=== PATIENT | female | born 1955 | race Caucasian/White ===

== ENCOUNTER 2018-01-19 09:43 | Emergency (ER) | payer OTHER ==
[2018-01-19 09:49] VITALS: BP 165/93; PULSE 71; TEMP 98.1; BMI 28.0
[2018-01-19] MEDS ORDERED: DEXAMETHASONE SOD PHOSPHATE 10 MG/1 ML VIAL IM ONE (10:28)
[2018-01-19] MEDS ORDERED: KETOROLAC TROMETHAMINE 60 MG/2 ML VIAL IM ONE (10:28)
[2018-01-19] MEDS ORDERED: KETOROLAC TROMETHAMINE 60 MG/2 ML VIAL ONE (10:31)
[2018-01-19] MEDS ORDERED: DEXAMETHASONE SOD PHOSPHATE 10 MG/1 ML VIAL ONE (10:31)
--- NOTE | 2018-01-19 10:33 | PDOC ---
History of Present Illness - General Chief Complaint: Pain Stated Complaint: PAIN Time Seen by Provider: 01/19/18 09:54 History Source: Patient Exam Limitations: No Limitations - History of Present Illness Initial Comments: 01/19/18 10:28 Patient here with complaints of persistent right shoulder pain. States one week ago woke up with pain in her right shoulder but progressively worsened. Was concerned may be a bad betting as daughter suffers from same but patient now complaints of radiating pain down the ulnar aspect of her right arm. Was seen by Dr. martinez a few days ago diagnosed possible cervical radiculopathy and is pending an MRI approval for her neck. Was given cyclobenzaprine and instructed use ibuprofen and states his medications have not helped her pain much. Denies fever, earache sore throat shortness of breath or URI symptoms. Denies any abdominal pain or history of gallbladder disease. States was diagnosed with rheumatoid arthritis one year ago but has not chosen to new evaluation or treatment Occurred: reports: last week Severity: reports: moderate, severe Pain Location: reports: upper extremity (right shoulder ) Method of Injury: Yes: unknown Loss of Consciousness: no loss of consciousness Associated Symptoms (Fall): denies symptoms Past History - Travel Traveled outside of the country in the last 30 days: No Close contact w/someone who was outside of country & ill: No - Past Medical History Allergies/Adverse Reactions: Allergies Allergy/AdvReac Type Severity Reaction Status Date / Time No Known Allergies Allergy Verified 01/19/18 09:49 Home Medications: Ambulatory Orders Carvedilol 6.25 mg PO DAILY 10/11/15 Losartan Potassium 25 mg PO DAILY 10/11/15 Simvastatin 40 mg PO DAILY 10/11/15 Naproxen [Naprosyn -] 500 mg PO BID #30 tablet 01/19/18 COPD: No Diabetes: Yes (pre) HTN: Yes Other medical history: rheumatoid arthritis with no meds - Immunization History Immunization Up to Date: Yes - Suicide/Smoking/Psychosocial Hx Smoking History: Current every day smoker Have you smoked in the past 12 months: Yes Number of Cigarettes Smoked Daily: 6 Information on smoking cessation initiated: No 'Breaking Loose' booklet given: 03/13/15 Hx Alcohol Use: No Drug/Substance Use Hx: No Substance Use Type: None Review of Systems - Review of Systems Able to Perform ROS?: Yes Is the patient limited Dutch proficient: Yes Constitutional: Yes: Symptoms Reported, See HPI, Malaise. No: Fever HEENTM: Yes: See HPI. No: Symptoms Reported Respiratory: Yes: See HPI. No: Symptoms reported Musculoskeletal: Yes: Symptoms Reported, See HPI, Back Pain, Joint Pain (right shoulder) Integumentary: Yes: See HPI. No: Symptoms Reported, Bruising Neurological: Yes: Symptoms reported All Other Systems: Reviewed and Negative *Physical Exam - Vital Signs Last Vital Signs Temp Pulse Resp BP Pulse Ox 98.1 F 71 18 165/93 98 01/19/18 09:45 01/19/18 09:45 01/19/18 09:45 01/19/18 09:45 01/19/18 09:45 - Physical Exam General Appearance: Yes: Nourished, Appropriately Dressed, Apparent Distress, Mild Distress, Moderate Distress HEENT: positive: GLENN, Normal ENT Inspection, TMs Normal, Pharynx Normal Neck: positive: Supple. negative: Tender, Tender midline (hhowever patient has tight tense musculature paravertebral spinous muscles on the right side) Respiratory/Chest: positive: Lungs Clear Extremity: positive: Normal Capillary Refill, Normal Inspection, Normal Range of Motion (but painful to abduct and flex past 90.), Tender Integumentary: positive: Dry, Warm, Pale Neurologic: positive: protection consultant II-XII NML intact, Fully Oriented, Alert, Normal Mood/ Affect, Normal Response, Motor Strength 5/5 Progress Note - Progress Note Progress Note: Right shoulder pain related to probable cervical radiculopathy and possible rheumatoid arthritis flare. We will encourage continued use of cyclobenzaprine, NSAIDs, and given 1 dose of Decadron here *DC/Admit/Observation/Transfer Diagnosis at time of Disposition: Right shoulder pain Qualifiers: Chronicity: acute Qualified Code(s): M25.511 - Pain in right shoulder - Discharge Dispostion Disposition: HOME Condition at time of disposition: Stable Decision to Admit order: No - Referrals Referrals: Sabas Lerner [Primary Care Provider] - Kevin Valadez MD [Staff Physician] - - Patient Instructions Printed Discharge Instructions: DI for Cervical Radiculopathy Additional Instructions: Rest, ice to area on and off for 15 minutes 4-6 times a day Avoid heavy lifting or exercise until pain and swelling is resolved or until further directed Keep area highly elevated to reduce swelling Use splints/Jason wrap as directed Followup with orthopedist in one to 2 days if not improving, if significantly improved may wait one week for followup with orthopedist May use Naprosyn 500 mg tablet every 12 hours for 3 days then hours as needed for pain You have been given 1 dose of Decadron 10 mg for steroidal anti-inflammatory purposes - Post Discharge Activity Forms/Work/School Notes: Back to Work
== END 2018-01-19 10:38 | disposition home or self-care (01) ==
LOC: JERFT 09:43
PROC: 3E0233Z Introduction of Anti-inflammatory into Muscle, Percutaneous Approach (ICD-10-PCS; principal; 2018-01-19)
PROC: 3E0233Z Introduction of Anti-inflammatory into Muscle, Percutaneous Approach (ICD-10-PCS; 2018-01-19)
DX: M25.511 Pain in right shoulder (principal); M06.9 Rheumatoid arthritis, unspecified; I10 Essential (primary) hypertension; R73.03 Prediabetes
CPT/HCPCS: 99281-25; J1100

== ENCOUNTER 2018-08-31 07:05 | Emergency (ER) | payer OTHER | END 2018-08-31 09:04 | disposition home or self-care (01) | LOC: JER 07:05 ==

== ENCOUNTER 2019-03-14 12:47 | Inpatient (IN) | payer OTHER ==
--- NOTE | 2019-03-14 13:55 | EKG ---
Test Reason : Blood Pressure : / mmHG Vent. Rate : 056 BPM Atrial Rate : 056 BPM P-R Int : 206 ms QRS Dur : 084 ms QT Int : 426 ms P-R-T Axes : 046 036 023 degrees QTc Int : 411 ms SINUS BRADYCARDIA OTHERWISE NORMAL ECG NO PREVIOUS ECGS AVAILABLE Confirmed by TEE GILL MD ([id number]) on 03/14/2019 1:54:44 PM Referred By: Confirmed By:TEE GILL MD
--- NOTE | 2019-03-14 14:12 | PDOC ---
History of Present Illness - General Chief Complaint: Chest Pain Stated Complaint: SOB Time Seen by Provider: 03/14/19 13:55 - History of Present Illness Initial Comments: 03/14/19 14:12 63F with pmh of hypertension and emphysema presents to the ED with chest pressure since 7am today while she was walking around at her workplace. She describes it like someone pushing on her chest worsening when she carries boxes at work. Somewhat short of breath but no diferent than her usul sob from her emphysema. No recent change in medication, trauma, recent surgeries. Is a smoker and has family history of heart attack around 50yo (both parents). No recent travel. Past History - Past Medical History Allergies/Adverse Reactions: Allergies Allergy/AdvReac Type Severity Reaction Status Date / Time No Known Allergies Allergy Verified 03/14/19 13:03 Home Medications: Ambulatory Orders Cyclobenzaprine HCl [Flexeril -] 10 mg PO HS #10 tablet 08/31/18 Cyclobenzaprine HCl [Flexeril -] 10 mg PO HS #10 tablet 08/31/18 Ibuprofen 600 mg PO Q6H #30 tablet 08/31/18 Ibuprofen 800 mg PO TID #30 tablet 08/31/18 Labetalol HCl 0 mg PO DAILY 08/31/18 COPD: No Diabetes: Yes (pre) HTN: Yes - Immunization History Immunization Up to Date: Yes - Psycho Social/Smoking Cessation Hx Smoking History: Current some day smoker Have you smoked in the past 12 months: Yes Number of Cigarettes Smoked Daily: 5 Information on smoking cessation initiated: Yes 'Breaking Loose' booklet given: 03/13/15 Hx Alcohol Use: No Drug/Substance Use Hx: No Substance Use Type: None Review of Systems - Review of Systems Able to Perform ROS?: Yes Is the patient limited Guatemalan proficient: No Constitutional: No: Symptoms Reported HEENTM: No: Symptoms Reported Respiratory: No: Symptoms reported Cardiac (ROS): Yes: See HPI ABD/GI: No: Symptoms Reported : No: Symptoms Reported Musculoskeletal: No: Symptoms Reported Integumentary: No: Symptoms Reported Neurological: No: Symptoms reported All Other Systems: Reviewed and Negative *Physical Exam - Vital Signs Last Vital Signs Temp Pulse Resp BP Pulse Ox 97.5 F L 55 L 18 147/66 99 03/14/19 13:04 03/14/19 13:04 03/14/19 13:04 03/14/19 13:04 03/14/19 13:04 - Physical Exam General Appearance: Yes: Nourished, Appropriately Dressed. No: Apparent Distress HEENT: positive: EOMI, GLENN, Normal ENT Inspection Respiratory/Chest: positive: Chest Tender (upper right chest), Lungs Clear, Normal Breath Sounds. negative: Respiratory Distress Cardiovascular: positive: Regular Rhythm, S1, S2, Bradycardia Gastrointestinal/Abdominal: positive: Normal Bowel Sounds, Flat, Soft. negative : Tender Musculoskeletal: positive: Normal Inspection. negative: CVA Tenderness Extremity: positive: Normal Capillary Refill, Normal Range of Motion Integumentary: positive: Normal Color, Dry, Warm Neurologic: positive: Fully Oriented, Alert, Normal Mood/Affect, Normal Response , Motor Strength 5/5 Heart Score/ECG Review - History History: Moderately suspicious - Electrocardiogram EKG: Normal - Age Age: >/= 65 - Risk Factors Risk Factors Heart Score: Yes Hx Hypertension, Yes Smoking History, Yes Positive family hx of cardiac disease Based on the list above the patient has:: >/=3 risk factors or Hx atherosclerotic disease - Troponin Troponin: </= normal limit - Score Heart Score - Total: 5 ED Treatment Course - LABORATORY CBC & Chemistry Diagram: 03/14/19 14:30 03/14/19 14:30 - ADDITIONAL ORDERS Additional order review: Laboratory Results 03/14/19 03/14/19 14:30 14:30 Sodium 141 Potassium 4.2 Chloride 108 H Carbon Dioxide 26 Anion Gap 7 L BUN 18.4 H Creatinine 0.9 Est GFR (CKD-EPI)AfAm 77.77 Est GFR (CKD-EPI)NonAf 67.10 Random Glucose 68 L Calcium 9.4 Total Bilirubin 0.2 AST 19 ALT 21 Alkaline Phosphatase 70 Troponin I < 0.02 Total Protein 7.4 Albumin 3.9 Urine Color Yellow Urine Appearance Cloudy Urine pH 6.0 Ur Specific [place] 1.006 L Urine Protein Negative Urine Glucose (UA) Negative Urine Ketones Negative Urine Blood Negative Urine Nitrite Negative Urine Bilirubin Negative Urine Urobilinogen 0.2 Ur Leukocyte Esterase Negative 03/14/19 14:30 RBC 4.64 MCV 85.3 MCHC 32.5 RDW 13.9 MPV 8.3 Neutrophils % 61.9 Lymphocytes % 28.1 D Monocytes % 6.7 Eosinophils % 2.8 Basophils % 0.5 - RADIOLOGY Radiology Studies Ordered: Category Date Time Status CHEST PA & LAT [RAD] Stat Radiology 03/14/19 14:02 Taken Medical Decision Making - Medical Decision Making 03/14/19 14:19 63F with chest pressure since 7am today. Elevated heart score at 6. Will obtain ekg, trops and cxr Admit to telemetry obs unless patient leaves AMA., Likely msk due to reproducible pain on palpation. Low well's score, of 0, low suspicion for PE. 03/14/19 16:50 ekg: Sinus bradycardia HR: 56, otherwise normal ekg Negative stops,. Patient admitted to Dr. Cordova to tele obs Discharge - Discharge Information Problems reviewed: Yes Clinical Impression/Diagnosis: Chest pain Condition: Improved - Admission Yes - Follow up/Referral Referrals: Sabas Lerner [Primary Care Provider] - - Patient Discharge Instructions - Post Discharge Activity
[2019-03-14 14:55] LABS: BASO % 0.5 % (0-2.0); EOS % 2.8 % (0-4.5); HEMATOCRIT 39.6 % (32.4-45.2); HEMOGLOBIN 12.9 GM/dL (10.7-15.3); LYMPH % 28.1 % (8-40); MCH 27.7 pg (25.7-33.7); MCHC 32.5 g/dl (32.0-36.0); MEAN CELL VOLUME 85.3 fl (80-96); MEAN PLT VOLUME 8.3 fl (7.5-11.1); MONO % 6.7 % (3.8-10.2); NEUT % 61.9 % (42.8-82.8); PLATELET COUNT 362 K/MM3 (134-434); RBC 4.64 M/mm3 (3.60-5.2); RDW 13.9 % (11.6-15.6); WHITE BLOOD COUNT 8.6 K/mm3 (4.0-10.0)
[2019-03-14 14:57] LABS: URINE APPEARANCE CLOUDY; URINE BILIRUBIN NEGATIVE (NEGATIVE); URINE COLOR YELLOW; URINE GLUCOSE (UA) NEGATIVE (NEGATIVE); URINE KETONE NEGATIVE (NEGATIVE); URINE LEUK ESTERASE NEGATIVE (NEGATIVE); URINE NITRITE NEGATIVE (NEGATIVE); URINE PROTEIN NEGATIVE (NEGATIVE); URINE UROBILINOGEN 0.2 mg/dL (0.2-1.0)
[2019-03-14 15:44] LABS: ALBUMIN 3.9 g/dl (3.4-5.0); ALK PHOS 70 U/L (45-117); ANION GAP 7 MMOL/L (8-16); BILIRUBIN,TOTAL 0.2 mg/dL (0.2-1); BLOOD UREA NITROGEN 18.4 mg/dL (7-18); CALCIUM 9.4 mg/dL (8.5-10.1); CHLORIDE 108 mmol/L (98-107); CO2 26 mmol/L (21-32); CREATININE 0.9 mg/dL (0.55-1.3); GLUCOSE,RANDOM 68 mg/dL (74-106); POTASSIUM 4.2 mmol/L (3.5-5.1); SGOT/AST 19 U/L (15-37); SGPT/ALT 21 U/L (13-61); SODIUM 141 mmol/L (136-145); TOT PROT 7.4 g/dl (6.4-8.2)
--- NOTE | 2019-03-14 17:01 | PDOC ---
Documentation entered by Gina Rivera SCRIBE, acting as scribe for Farheen Ortiz MD. Farheen Ortiz MD: This documentation has been prepared by the Nicole lane Adrianna, SCRIBE, under my direction and personally reviewed by me in its entirety. I confirm that the documentation accurately reflects all work, treatment, procedures, and medical decision making performed by me. Attending Attestation - Resident Resident Name: ChenchoAdarsh - ED Attending Attestation I have performed the following: I have examined & evaluated the patient, The case was reviewed & discussed with the resident, I agree w/resident's findings & plan, Exceptions are as noted - HPI HPI: The patient is a 63 year old female, with a significant PMH of HTN, emphysema, and pre-DM, who presents to the ED for evaluation of chest pressure since this morning. Patient notes she was at work ([employer] employee), changing heavy display cases when she developed sudden onset right-sided chest pressure ( unsure if it developed while she was lifting or after). Patient has done this in the past without any problems. Patient describes the pressure as "a man sitting on my chest. She reports associated nausea, lethargy this morning but has had this intermittently for weeks. Patient reports some shortness of breath , but does note this is present at baseline (2/2 emphysema). Her symptoms are exacerbated with picking up heavy items (i.e when she was lifting boxes at work) . She denies any history of similar symptoms. Patient went to Urgent Care earlier for this complaint, and was sent to the ED for further evaluation secondary to her cardiac risk factors. Denies dizziness, focal weakness/numbness, fever, chills, abdominal pain, nausea , vomit, diarrhea, constipation, dysuria, hematuria, LE edema, calf pain. Allergies: NKA, NKDA Surgical History: None reported Family History: Father passed at an earlier age 2/2 [place]. Mother had angina. Social History: Current everyday smoker (1/4 ppd). Denies EtOH or illicit drug use PCP: Dr. Lerner [place] Sewer: Dr. Vivar - Physicial Exam PE: GENERAL: Awake, alert, and fully oriented, in no acute distress HEAD: No signs of trauma EYES: PERRLA, EOMI, sclera anicteric, conjunctiva clear ENT: Auricles normal inspection, hearing grossly normal, nares patent, oropharynx clear without exudates. Moist mucosa NECK: Normal ROM, supple, no lymphadenopathy, JVD, or masses LUNGS: Breath sounds equal, clear to auscultation bilaterally. No wheezes, and no crackles HEART: +Bradycardic. +Right chest wall pain that is reproducible on palpation. Regular rhythm, normal S1 and S2, no murmurs, rubs or gallops ABDOMEN: Soft, nontender, normoactive bowel sounds. No guarding, no rebound. No masses EXTREMITIES: Normal range of motion, no edema. No clubbing or cyanosis. No cords , erythema, or tenderness BACK: No midline spinal tenderness in cervical/thoracic/lumbar region NEUROLOGICAL: Normal speech, cranial nerves intact, negative pronator drift, 5/ 5 strength in all 4 extremities, normal sensation to light touch in all 4 extremities, normal cerebellar exam, normal gait, normal reflexes and tone SKIN: Warm, Dry, normal turgor, no rashes or lesions noted. - Medical Decision Making 03/14/19 15:35 63-year-old female with a history of diabetes, active smoker, hypertension, significant family history of cardiac disease presents emergency department with chest pressure since this morning. Differential includes acute coronary syndrome versus musculoskeletal pain versus pneumonia. Unlikely pulmonary embolism as patient denies any new shortness of breath (states she feels short of breath at baseline due to emphysema). Patient also has no risk factors for pulmonary embolism, no recent travel or immobility and has no calf pain or tenderness. She also denies chest pain and is reporting only pressure. Her heart score 6. Plan at this point to obtain labs, x-ray and admit the patient given her elevated heart score for further cardiac work-up. Heart Score/ECG Review #1 03/14/19 17:33 Twelve-lead EKG was performed and reviewed by me. Sinus bradycardia, rate 56. Normal axis and intervals. No ST elevations.
[2019-03-14 18:57] VITALS: BMI 26.9
--- NOTE | 2019-03-14 19:56 | HP ---
Admitting History and Physical - Smoking History Smoking history: Current some day smoker Have you smoked in the past 12 months: Yes Aproximately how many cigarettes per day: 5 - Alcohol/Substance Use Hx Alcohol Use: No Home Medications - Allergies Allergies/Adverse Reactions: Allergies Allergy/AdvReac Type Severity Reaction Status Date / Time No Known Allergies Allergy Verified 03/14/19 13:03 - Home Medications Home Medications: Ambulatory Orders Labetalol HCl 200 mg PO BID 08/31/18 Aspirin [Aspirin EC] 81 mg PO DAILY 03/14/19 Glyburide 2.5 mg PO DAILY 03/14/19 Spironolactone 25 mg PO DAILY 03/14/19 Physical Examination Vital Signs: Vital Signs Temperature 97.9 F 03/14/19 18:52 Pulse Rate 65 03/14/19 18:52 Respiratory Rate 18 03/14/19 18:59 Blood Pressure 149/87 03/14/19 18:52 O2 Sat by Pulse Oximetry (%) 99 03/14/19 18:59 Labs: CBC, BMP 03/14/19 14:30 03/14/19 14:30
[2019-03-14] MEDS: ASPIRIN COATED 81 MG TABLET.EC PO SCH (20:56)
[2019-03-14] MEDS: INSULIN SLIDING SCALE (NOVOLOG) 1 VIAL SQ SCH (21:53)
[2019-03-14] MEDS: LABETALOL HCL 200 MG TABLET (FP) PO SCH (21:53)
[2019-03-14] MEDS: HEPARIN NA (PORCINE) 5,000 UNITS/ML 1ML VIAL SQ SCH (21:53)
[2019-03-15] MEDS: INSULIN SLIDING SCALE (NOVOLOG) 1 VIAL SQ SCH ×2 (06:36→12:07)
[2019-03-15 07:00] LABS: BASO % 0.5 % (0-2.0); EOS % 3.8 % (0-4.5); HEMATOCRIT 38.1 % (32.4-45.2); HEMOGLOBIN 12.8 GM/dL (10.7-15.3); MCH 28.1 pg (25.7-33.7); MCHC 33.4 g/dl (32.0-36.0); MEAN CELL VOLUME 84.1 fl (80-96); MEAN PLT VOLUME 8.3 fl (7.5-11.1); MONO % 7.7 % (3.8-10.2); PLATELET COUNT 342 K/MM3 (134-434); RBC 4.54 M/mm3 (3.60-5.2); RDW 13.9 % (11.6-15.6); WHITE BLOOD COUNT 6.8 K/mm3 (4.0-10.0)
[2019-03-15] MEDS ORDERED: glyBURIDE 2.5 MG TABLET (FP) PO SCH (07:00)
[2019-03-15 07:17] LABS: ALBUMIN 3.4 g/dl (3.4-5.0); BILIRUBIN,TOTAL 0.4 mg/dL (0.2-1); BLOOD UREA NITROGEN 17.8 mg/dL (7-18); CALCIUM 8.8 mg/dL (8.5-10.1); CREATININE 0.9 mg/dL (0.55-1.3); POTASSIUM 4.3 mmol/L (3.5-5.1); TOT PROT 6.4 g/dl (6.4-8.2)
[2019-03-15 09:22] VITALS: BP 118/80; PULSE 74; TEMP 98.1
[2019-03-15] MEDS: ASPIRIN COATED 81 MG TABLET.EC PO SCH (09:23)
[2019-03-15] MEDS: HEPARIN NA (PORCINE) 5,000 UNITS/ML 1ML VIAL SQ SCH (09:24)
[2019-03-15] MEDS: LABETALOL HCL 200 MG TABLET (FP) PO SCH (09:25)
[2019-03-15] MEDS ORDERED: SPIRONOLACTONE 25 MG TABLET (FP) PO SCH (10:00)
--- NOTE | 2019-03-15 10:23 | PN ---
Progress Note (short form) - Note Progress Note: patient seen and examiunde in room reports CP occured while doing heavy lifting at work denies diaphoresis / radiation of pain / N/ V/ SOB has been chesp pain free since admission TNI flat / EKG no findings Vital Signs Period Temp Pulse Resp BP Sys/Ugarte Pulse Ox Last 24 Hr 97.5 F-98.5 F 55-80 18-18 118-156/66-89 99-100 neck supple heart s1/S2 lungs clear bilat abd soft non tender ext no edema CBC, BMP 03/15/19 06:05 03/15/19 06:05 Troponin, BNP 03/14/19 03/14/19 03/14/19 14:30 17:00 20:40 Troponin I < 0.02 < 0.02 < 0.02 03/15/19 06:05 Troponin I < 0.02 Active Medications Aspirin (Ecotrin -) 81 mg PO DAILY [facility] Last Admin: 03/15/19 09:23 Dose: 81 mg Glyburide (Diabeta -) 2.5 mg PO DAILY@0700 [facility] Last Admin: 03/15/19 06:36 Dose: 2.5 mg Heparin Sodium (Porcine) (Heparin -) 5,000 unit SQ BID [facility] Last Admin: 03/15/19 09:24 Dose: Not Given Insulin Aspart (Novolog Vial Sliding Scale -) 1 vial SQ ACHS [facility]; Protocol Last Admin: 03/15/19 06:36 Dose: Not Given Labetalol HCl (Normodyne -) 200 mg PO BID [facility] Last Admin: 03/15/19 09:25 Dose: 200 mg Spironolactone (Aldactone -) 25 mg PO DAILY [facility] Last Admin: 03/15/19 09:23 Dose: 25 mg # atypical chest pain sx resolved / TNI flat / EKG NSR no ischemic changes - no evidence of ACS pain not reproducible on exam today risk factors DM / HTN /smoker will need stress testing - discussed with patient -she agrees with out patient follow up defer to Cardio for out patient follow up # HTN on meds well controlled # DM compliant / well controlled on home meds continue meds If Cardio agrees d/c today with out patient follow up
--- NOTE | 2019-03-15 13:03 | CON.CARD ---
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 She describes it like someone pushing on her chest worsening when she carries boxes at work. Somewhat short of breath but no different than her usul sob from her emphysema. She is a smoker and has family history of heart attack around 50yo (both parents). She is currently asymptomatic denies chest pain, dyspnea worse than baseline, near or true syncope, palpitations, orthopnea, PND, claudication or LE edema. - History Source History Provided By: Patient Limitations to Obtaining History: No Limitations - Alcohol/Substance Use Hx Alcohol Use: No - Smoking History Smoking history: Current some day smoker Have you smoked in the past 12 months: Yes Aproximately how many cigarettes per day: 5 Home Medications - Allergies Allergies/Adverse Reactions: Allergies Allergy/AdvReac Type Severity Reaction Status Date / Time No Known Allergies Allergy Verified 03/14/19 13:03 - Home Medications Home Medications: Ambulatory Orders Labetalol HCl 200 mg PO BID 08/31/18 Aspirin [Aspirin EC] 81 mg PO DAILY 03/14/19 Glyburide 2.5 mg PO DAILY 03/14/19 Spironolactone 25 mg PO DAILY 03/14/19 Review of Systems - Review of Systems Cardiovascular: reports: Chest Pain, Shortness of Breath Vital Signs: Vital Signs Temperature 98.1 F 03/15/19 09:21 Pulse Rate 74 03/15/19 09:21 Respiratory Rate 18 03/15/19 09:21 Blood Pressure 118/80 03/15/19 09:21 O2 Sat by Pulse Oximetry (%) 96 03/15/19 09:00 Constitutional: Yes: No Distress, Calm Neck: Yes: Supple Respiratory: Yes: Regular, CTA Bilaterally Gastrointestinal: Yes: Normal Bowel Sounds, Soft Cardiovascular: Yes: Regular Rate and Rhythm JVD: No Carotid Bruit: No Heart Sounds: Yes: S1, S2 Edema: No - Other Data Labs, Other Data: CBC, BMP 03/15/19 06:05 03/15/19 06:05 Troponin, BNP 12/03/14/19 03/14/19 14:30 17:00 20:40 Troponin I < 0.02 < 0.02 < 0.02 03/15/19 06:05 Troponin I < 0.02 Troponin, BNP 03/14/19 03/14/19 03/14/19 14:30 17:00 20:40 Troponin I < 0.02 < 0.02 < 0.02 03/15/19 06:05 Troponin I < 0.02 SB @ 56 1st deg AVB Imaging - Results Chest X-ray: Report Reviewed (NAD) EKG: Report Reviewed (SB @ 56 1st deg AVB) Problem List - Problems (1) Atypical chest pain Code(s): R07.89 - OTHER CHEST PAIN (2) Hypertension Code(s): I10 - ESSENTIAL (PRIMARY) HYPERTENSION Qualifiers: Hypertension type: essential hypertension Qualified Code(s): I10 - Essential (primary) hypertension (3) Type 2 diabetes mellitus Code(s): E11.9 - TYPE 2 DIABETES MELLITUS WITHOUT COMPLICATIONS Qualifiers: Diabetes mellitus superintendent container terminal insulin use: without residential use Assessment/Plan 1. Atypical chest pain after lifting heavy items since resolved, suspect musculoskeletal etiology 2. Hypertension 3. Hyperlipidemia 4. Type 2 DM 5. Family history of CAD 6. Tobacco abuse P:1. Ruled out for [place] 2. July d/c home with plan for outpatient stress echo r/o structural heart disease, plan of care d/w patient and primary 3. Continue labetolol 200 bid, Aldactone 25 qd, tobacco cessation 4. Thank you for consultative opportunity
--- NOTE | 2019-03-15 21:21 | DS ---
Physical Examination Vital Signs: Vital Signs Temperature 98.1 F 03/15/19 09:21 Pulse Rate 74 03/15/19 09:21 Respiratory Rate 18 03/15/19 09:21 Blood Pressure 118/80 03/15/19 09:21 O2 Sat by Pulse Oximetry (%) 96 03/15/19 09:00 Findings/Remarks: 63F with pmh of hypertension and emphysema presents to the ED with chest pressure since 7am today while she was walking around at her workplace. She describes it like someone pushing on her chest worsening when she carries boxes at work. Somewhat short of breath but no diferent than her usul sob from her emphysema. No recent change in medication, trauma, recent surgeries. Is a smoker and has family history of heart attack around 50yo (both parents). No recent travel. # atypical chest pain sx resolved / TNI flat / EKG NSR no ischemic changes - no evidence of ACS pain not reproducible on exam today risk factors DM / HTN /smoker will need stress testing - discussed with patient -she agrees with out patient follow up . d/c home with plan for outpatient stress echo r/o structural heart disease , plan of care d/w patient arranged by Maribeth # HTN on meds well controlled # DM compliant / well controlled on home meds continue meds Constitutional: Yes: Well Nourished, No Distress Eyes: Yes: Conjunctiva Clear, EOM Intact HENT: Yes: Atraumatic, Normocephalic Neck: Yes: Supple, Trachea Midline Cardiovascular: Yes: Regular Rate and Rhythm, S1, S2 Respiratory: Yes: CTA Bilaterally Gastrointestinal: Yes: Normal Bowel Sounds, Soft ...Rectal Exam: Yes: Deferred Renal/: Yes: WNL Breast(s): Yes: WNL Musculoskeletal: Yes: WNL. No: Joint Stiffness, Joint Swelling, Muscle Pain Extremities: Yes: WNL Edema: No Peripheral Pulses WNL: Yes Integumentary: Yes: WNL Wound/Incision: Yes: Clean/Dry, Well Approximated Neurological: Yes: Alert, Oriented ...Motor Strength: WNL Psychiatric: Yes: Alert, Oriented Labs: CBC, BMP 03/15/19 06:05 03/15/19 06:05 Discharge Summary Problems reviewed: Yes Reason For Visit: CHEST PAIN Condition: Improved - Instructions Referrals: Sabas Lerner [Primary Care Provider] - Disposition: HOME - Home Medications Comprehensive Discharge Medication List: Ambulatory Orders Labetalol HCl 200 mg PO BID 08/31/18 Aspirin [Aspirin EC] 81 mg PO DAILY 03/14/19 Glyburide 2.5 mg PO DAILY 03/14/19 Spironolactone 25 mg PO DAILY 03/14/19
== END 2019-03-15 13:47 | disposition home or self-care (01) | DRG 313 ==
LOC: JER 12:47 → JERBED 15:55 → J4W 18:51 → OBSVTOIN 19:54
PROVIDERS: ADMIT Family Medicine; ATTEND Family Medicine
DX: R07.89 Other chest pain (principal); I10 Essential (primary) hypertension; J43.9 Emphysema, unspecified; F17.210 Nicotine dependence, cigarettes, uncomplicated; E11.9 Type 2 diabetes mellitus without complications; I25.10 Atherosclerotic heart disease of native coronary artery without angina pectoris; E78.5 Hyperlipidemia, unspecified; I44.0 Atrioventricular block, first degree
CPT/HCPCS: 36415; 71046-TC-FY; 80053; 81003; 82550; 82962; 84484; 85025; 87086; 93005; 93010; 99285-25; G0378

== ENCOUNTER 2021-03-12 08:49 | Emergency (ER) | payer OTHER ==
[2021-03-12 09:26] VITALS: BP 131/86; PULSE 62; TEMP 98; BMI 28.5
[2021-03-12] MEDS ORDERED: ACETAMINOPHEN 500 MG TABLET (FP) PO ONE (09:50)
== END 2021-03-12 11:15 | disposition home or self-care (01) ==
LOC: JER 08:49 → JERFT 08:49
PROC: 2W3GX1Z Immobilization of Right Thumb using Splint (ICD-10-PCS; principal; 2021-03-12)
DX: M79.644 Pain in right finger(s) (principal)
CPT/HCPCS: 29130; 73130-TC-RT-FY; 99284-25

== ENCOUNTER 2023-08-02 14:15 | Emergency (ER) | payer OTHER ==
[2023-08-02 14:24] VITALS: BP 151/78; PULSE 71; RESP 18; TEMP 98.2; BMI 28.1
[2023-08-02 16:24] LABS: PH,URINE 5.5 (5.0-8.0); URINE APPEARANCE CLEAR; URINE BILIRUBIN NEGATIVE (NEGATIVE); URINE COLOR YELLOW; URINE GLUCOSE (UA) NEGATIVE (NEGATIVE); URINE KETONE NEGATIVE (NEGATIVE); URINE LEUK ESTERASE NEGATIVE (NEGATIVE); URINE NITRITE NEGATIVE (NEGATIVE); URINE PROTEIN NEGATIVE (NEGATIVE); URINE UROBILINOGEN 0.2 mg/dL (0.2-1.0)
[2023-08-02 17:19] LABS: BASO % 0.7 % (0-2.0); HEMATOCRIT 40.6 % (32.4-45.2); HEMOGLOBIN 13.3 GM/dL (10.7-15.3); LYMPH % 19.5 % (8-40); MCH 27.2 pg (25.7-33.7); MCHC 32.8 g/dl (32.0-36.0); MEAN CELL VOLUME 83.1 fl (80-96); MEAN PLT VOLUME 7.2 fl (7.5-11.1); MONO % 8.7 % (3.8-10.2); NEUT % 69.1 % (42.8-82.8); PLATELET COUNT 476 10^3/uL (134-434); RBC 4.89 M/mm3 (3.60-5.2); RDW 13.6 % (11.6-15.6); WHITE BLOOD COUNT 10.1 K/mm3 (4.0-10.0)
[2023-08-02 17:36] LABS: POTASSIUM 4.8 mmol/L (3.5-5.1)
[2023-08-02 17:40] LABS: ALBUMIN 3.7 g/dl (3.4-5.0); CALCIUM 9.4 mg/dL (8.5-10.1)
[2023-08-02 17:42] LABS: CREATININE 0.9 mg/dL (0.55-1.3)
[2023-08-02 17:44] LABS: BILIRUBIN,TOTAL 0.2 mg/dL (0.2-1); TOT PROT 7.5 g/dl (6.4-8.2)
== END 2023-08-02 21:00 | disposition home or self-care (01) ==
LOC: JER 14:15
DX: R05.9 Cough, unspecified (principal); R07.89 Other chest pain
CPT/HCPCS: 36415; 71046-TC-FY; 71275-TC; 80053; 81003; 84484; 85025; 85379; 93005; 93010; 99285-25; Q9967

== ENCOUNTER 2024-07-18 12:52 | Emergency (ER) | payer OTHER ==
[2024-07-18 13:01] VITALS: BP 114/63; PULSE 71; RESP 16; TEMP 98.1; BMI 28.1
[2024-07-18] MEDS ORDERED: ACETAMINOPHEN INJECTION 100 ML ONE (13:53)
[2024-07-18] MEDS ORDERED: FAMOTIDINE 20 MG/50 ML IVPB 20 MG/50 ML MG IVPB ONE (13:54)
[2024-07-18] MEDS ORDERED: MAG HYDROX/AL HYDROX/SIMETH 30 ML UNIT-DOSE CUP ONE (13:54)
[2024-07-18] MEDS ORDERED: ONDANSETRON 4 MG/2 ML VIAL ONE (13:54)
[2024-07-18] MEDS: MAG HYDROX/AL HYDROX/SIMETH 30 ML UNIT-DOSE CUP PO ONE (14:16)
[2024-07-18] MEDS: ACETAMINOPHEN 1000 MG/100 ML BAG IVPB ONE (14:16)
[2024-07-18] MEDS: FAMOTIDINE 20 MG/50 ML IVPB 20 MG/50 ML MG IVPB ONE (14:17)
[2024-07-18] MEDS: ONDANSETRON 4 MG/2 ML VIAL IVPB ONE (14:17)
[2024-07-18 14:25] LABS: ABSOLUTE IMMATURE GRANULOCYTES 0.03 x10^3/uL (0.0-0.031); BASOPHILS # 0.02 x10^3/uL (0.01-0.08); EOSINOPHIL % 1.5 % (0.7-5.8); EOSINOPHILS # 0.11 x10^3/uL (0.04-0.36); HEMATOCRIT 39.4 % (34.1-44.9); HEMOGLOBIN 12.4 g/dL (11.2-15.7); MCHC 31.5 g/dl (32.2-35.5); MEAN CELL VOLUME 86.8 fl (79.4-94.8); MEAN PLT VOLUME 9.6 fl (9.4-12.3); MONOCYTE # 0.52 x10^3/uL (0.24-0.86); MONOCYTE % 7.1 % (4.7-12.5); PLATELET COUNT 341 x10^3/uL (182-369); RDW 14.3 % (12.4-16.6)
[2024-07-18 14:27] LABS: PH,URINE 5.5 (5.0-8.0); URINE APPEARANCE CLEAR; URINE BILIRUBIN NEGATIVE (NEGATIVE); URINE COLOR YELLOW; URINE GLUCOSE (UA) NEGATIVE (NEGATIVE); URINE KETONE NEGATIVE (NEGATIVE); URINE LEUK ESTERASE NEGATIVE (NEGATIVE); URINE NITRITE NEGATIVE (NEGATIVE); URINE PROTEIN NEGATIVE (NEGATIVE); URINE UROBILINOGEN 0.2 mg/dL (0.2-1.0)
[2024-07-18 14:46] LABS: POTASSIUM 4.4 mmol/L (3.5-5.1)
[2024-07-18 14:48] LABS: CALCIUM 9.5 mg/dL (8.5-10.1)
[2024-07-18 14:49] LABS: ALBUMIN 3.7 g/dl (3.4-5.0); BLOOD UREA NITROGEN 24.8 mg/dL (7-18); MAGNESIUM 2.3 mg/dL (1.8-2.4)
[2024-07-18 14:52] LABS: CREATININE 1.1 mg/dL (0.55-1.3)
[2024-07-18 14:53] LABS: BILIRUBIN,TOTAL 0.5 mg/dL (0.2-1); TOT PROT 7.2 g/dl (6.4-8.2)
[2024-07-18 15:44] LABS: HCV DIAGNOSTIC IN-HOUSE W/RFLX NON-REACTIVE (NONREACTIVE)
[2024-07-18 15:45] LABS: HIV INTERPRETATION NEGATIVE (NEGATIVE)
== END 2024-07-18 17:14 | disposition home or self-care (01) ==
LOC: JER 12:52
PROC: 3E033GC Introduction of Other Therapeutic Substance into Peripheral Vein, Percutaneous Approach (ICD-10-PCS; principal; 2024-07-18)
PROC: 3E033NZ Introduction of Analgesics, Hypnotics, Sedatives into Peripheral Vein, Percutaneous Approach (ICD-10-PCS; 2024-07-18)
PROC: 3E033GC Introduction of Other Therapeutic Substance into Peripheral Vein, Percutaneous Approach (ICD-10-PCS; 2024-07-18)
DX: R11.2 Nausea with vomiting, unspecified (principal); R94.5 Abnormal results of liver function studies; M54.6 Pain in thoracic spine; R42 Dizziness and giddiness; R06.02 Shortness of breath
CPT/HCPCS: 36415; 71046-TC-FY; 80053; 81003; 83735; 84484; 85025; 86803; 87086; 87389; 93005; 93010; 99285-25; J0131

== ENCOUNTER 2024-12-02 00:10 | Emergency (ER) | payer OTHER ==
[2024-12-02 00:17] VITALS: TEMP 97.9; BMI 27.6
[2024-12-02] MEDS ORDERED: FAMOTIDINE 10 MG/ML VIAL IVPB ONE (00:34)
[2024-12-02] MEDS ORDERED: ACETAMINOPHEN INJECTION 100 ML ONE (00:34)
[2024-12-02] MEDS ORDERED: ONDANSETRON 4 MG/2 ML VIAL ONE (00:34)
[2024-12-02] MEDS: ONDANSETRON 4 MG/2 ML VIAL IVPUSH ONE (00:46)
[2024-12-02] MEDS: FAMOTIDINE 20 MG/50 ML IVPB 20 MG/50 ML MG IVPB ONE (00:47)
[2024-12-02] MEDS: ACETAMINOPHEN 1000 MG/100 ML BAG IVPB ONE (00:47)
[2024-12-02 01:19] LABS: ABSOLUTE IMMATURE GRANULOCYTES 0.06 x10^3/uL (0.0-0.031); BASOPHILS # 0.03 x10^3/uL (0.01-0.08); EOSINOPHIL % 1.3 % (0.7-5.8); EOSINOPHILS # 0.17 x10^3/uL (0.04-0.36); MCHC 31.5 g/dl (32.2-35.5); MEAN CELL VOLUME 86.6 fl (79.4-94.8); MEAN PLT VOLUME 9.7 fl (9.4-12.3); MONOCYTE # 0.59 x10^3/uL (0.24-0.86); MONOCYTE % 4.5 % (4.7-12.5); RDW 13.9 % (12.4-16.6)
[2024-12-02 01:24] LABS: URINE APPEARANCE CLEAR; URINE BILIRUBIN NEGATIVE (NEGATIVE); URINE COLOR YELLOW; URINE GLUCOSE (UA) NEGATIVE (NEGATIVE); URINE KETONE NEGATIVE (NEGATIVE); URINE LEUK ESTERASE NEGATIVE (NEGATIVE); URINE NITRITE NEGATIVE (NEGATIVE); URINE PROTEIN NEGATIVE (NEGATIVE); URINE UROBILINOGEN 1.0 mg/dL (0.2-1.0)
[2024-12-02 02:29] LABS: GLUCOSE,RANDOM 160.0 mg/dL (74-106)
[2024-12-02 02:30] LABS: CO2 21.0 mmol/L (21-32); CREATININE 1.03 mg/dL (0.55-1.3); TOT PROT 7.2 g/dl (6.4-8.2)
[2024-12-02 02:31] LABS: ALK PHOS 64.0 U/L (40-150); SGOT/AST 19.0 U/L (5-34); SGPT/ALT 13.0 U/L (0-55)
[2024-12-02 03:07] VITALS: BP 140/80; PULSE 60; RESP 19
== END 2024-12-02 03:07 | disposition home or self-care (01) ==
LOC: JER 00:10
PROC: 3E033GC Introduction of Other Therapeutic Substance into Peripheral Vein, Percutaneous Approach (ICD-10-PCS; principal; 2024-12-02)
PROC: 3E033GC Introduction of Other Therapeutic Substance into Peripheral Vein, Percutaneous Approach (ICD-10-PCS; 2024-12-02)
PROC: 3E033NZ Introduction of Analgesics, Hypnotics, Sedatives into Peripheral Vein, Percutaneous Approach (ICD-10-PCS; 2024-12-02)
DX: K80.20 Calculus of gallbladder without cholecystitis without obstruction (principal); R07.89 Other chest pain; R10.13 Epigastric pain; M54.6 Pain in thoracic spine; R11.2 Nausea with vomiting, unspecified; R06.02 Shortness of breath; R14.0 Abdominal distension (gaseous)
CPT/HCPCS: 36415; 71046-TC-FY; 76705-TC; 80053; 81003; 83690; 83735; 84484; 85025; 87086; 93005; 93010; 99285-25